=== PATIENT | female | born 1960 | race Caucasian/White ===

== ENCOUNTER 2019-10-04 11:03 | Emergency (ER) | payer SELFPAY ==
[2019-10-04] MEDS ORDERED: Ibuprofen 600 MG TAB ONE (12:02)
--- NOTE | 2019-10-04 12:07 | RAD ---
RADIOGRAPH CHEST 1 VIEW: DATE: 10/04/2019 HISTORY: 58-year-old female with acute traumatic right chest pain due to fall FINDINGS: The thoracic aorta is tortuous and ectatic. There is no evidence of airspace density, pulmonary edema , or pneumothorax. The lateral costophrenic angles are not effaced. No displaced right rib fracture is identified. No cardiomegaly. IMPRESSION: 1) No acute pulmonary findings. 2) ectasia of thoracic aorta. 3) no displaced right rib fracture identified.
== END 2019-10-04 12:18 | disposition home or self-care (01) ==
LOC: MADERS 11:03
DX: S29.011A Strain of muscle and tendon of front wall of thorax, initial encounter (principal); W18.2XXA Fall in (into) shower or empty bathtub, initial encounter